=== PATIENT | female | born 1990 | race African-American/Black ===

== ENCOUNTER 2021-09-03 06:01 | Day surgery (SDC) | payer OTHER, MEDICAID ==
[2021-09-03 06:20] VITALS: BMI 31.5
[2021-09-03 07:01] LABS: Fetal Membranes Rupture No Membranes Rupture (No Rupture)
== END 2021-09-03 07:46 | disposition home health service (06) ==
LOC: CSHLD/OP 06:01
PROVIDERS: ATTEND Family Medicine
DX: O47.03 False labor before 37 completed weeks of gestation, third trimester (principal); O99.891 Other specified diseases and conditions complicating pregnancy; N89.8 Other specified noninflammatory disorders of vagina; Z3A.35 35 weeks gestation of pregnancy
CPT/HCPCS: 84112

== ENCOUNTER 2021-09-06 23:52 | Inpatient (IN) | payer OTHER ==
[2021-09-07] MEDS ORDERED: HYDROcodone/Acetaminophen 5/325 mg Tablet PO PRN ×2 (00:42→17:11)
[2021-09-07] MEDS ORDERED: Misoprostol 200 MCG TAB PR PRN (00:42)
[2021-09-07] MEDS ORDERED: Ibuprofen 800 MG TAB PO PRN (00:42)
[2021-09-07] MEDS ORDERED: hydrALAZINE 20 MG/ML VIAL SLOW IVP PRN ×2 (00:42→17:11)
[2021-09-07] MEDS ORDERED: Carboprost 250 MCG/ML AMP IM PRN (00:42)
[2021-09-07] MEDS ORDERED: Butorphanol Tartrate 1 MG/ML VIAL SLOW IVP PRN (00:42)
[2021-09-07] MEDS ORDERED: Promethazine HCl 25 MG/ML VIAL IM PRN ×3 (00:42→17:11)
[2021-09-07] MEDS ORDERED: Acetaminophen 500 MG TAB PO PRN (00:42)
[2021-09-07] MEDS ORDERED: Ondansetron PF 4 MG/2 ML Vial IVP PRN ×3 (00:42→17:11)
[2021-09-07] MEDS ORDERED: Lidocaine 1% (PF) 30 ML VIAL SC PRN (00:42)
[2021-09-07] MEDS ORDERED: Diphenoxylate HCl/Atropine Tablet PO PRN (00:42)
[2021-09-07] MEDS ORDERED: Methylergonovine 0.2 MG/ML VIAL IM PRN (00:42)
[2021-09-07] MEDS ORDERED: NS w/ Oxytocin 30 units 500 ML IV SCH ×3 (00:45→17:11)
[2021-09-07] MEDS ORDERED: Penicillin G Potassium 5 MILL.UNITS VIAL ONE (00:46)
[2021-09-07 00:56] VITALS: BMI 32.1
[2021-09-07] MEDS ORDERED: Penicillin G Potassium 5 MILL.UNITS in Sodium Chloride 0.9% 100 ML IVPB SCH (01:00)
[2021-09-07] MEDS ORDERED: Fentanyl 2 mcg/Bup 0.1% Cadd 100 ML ONE ×2 (01:10→09:11)
[2021-09-07 01:11] LABS: Hemoglobin 11.3 g/dL (12.0-15.5); Mean Corpuscular HGB CONC 33.5 g/dL (32.0-36.0); Mean Corpuscular Hemoglobin 28.3 pg (27.0-33.0); Mean Corpuscular Volume 84.3 fl (81.6-98.3); Mean Platelet Volume 11.7 fl (7.4-10.4); Platelet Count 183 10x3/uL (150-450); RBC Distribution Width 13.9 % (11.5-14.5); White Blood Cell (WBC) Count 12.2 10x3/uL (3.5-10.5)
[2021-09-07] MEDS: Lactated Ringer's 1,000 ML IV SCH (01:16)
[2021-09-07 01:45] LABS: Syphilis Antibody Nonreactive (Nonreactive); Syphilis Antibody Index 0.06 S/CO (<1.00 Non-Reactive)
[2021-09-07 01:46] LABS: Hep B Surf Ag Non-Reactive S/CO (NonReactive)
[2021-09-07] MEDS ORDERED: ePHEDrine Sulfate 50 MG/10 ML VIAL SLOW IVP PRN (01:50)
[2021-09-07] MEDS ORDERED: Acetaminophen 325 MG TAB PO PRN (01:50)
[2021-09-07] MEDS ORDERED: Lactated Ringer's 500 ML IV PRN (01:50)
[2021-09-07] MEDS ORDERED: diphenhydrAMINE 50 MG/ML VIAL IVP PRN (01:50)
[2021-09-07] MEDS ORDERED: Hydrocerin (Eucerin) Cream 120 gm Jar TOP PRN (01:50)
[2021-09-07] MEDS ORDERED: Naloxone HCl 0.4 mg/ml Vial IVP PRN ×2 (01:50)
[2021-09-07] MEDS ORDERED: Fentanyl 2 mcg/Bupivacaine 0.1% Cassette 100 ML EPIDURAL SCH (02:00)
[2021-09-07] MEDS ORDERED: Communication Order-Pharmacy FS SCH (02:00)
[2021-09-07 02:29] LABS: HBSAg Index 0.16 S/CO (0-0.99)
[2021-09-07] MEDS: Penicillin G 2.5 MILL.units 2.5 MILL.UNITS in Premix Bag 1 BAG IVPB SCH ×3 (04:11→13:01)
[2021-09-07] MEDS ORDERED: ePHEDrine Sulfate 50 MG/10 ML VIAL ONE (08:00)
[2021-09-07] MEDS ORDERED: Boostrix 0.5 ML (Tdap) VIAL IM ONE (17:11)
[2021-09-07] MEDS ORDERED: Bisacodyl 10 MG SUPP PR PRN (17:11)
[2021-09-07] MEDS ORDERED: diphenhydrAMINE 25 MG CAP PO PRN (17:11)
[2021-09-07] MEDS ORDERED: Milk Of Magnesia 30 ML UDCUP PO PRN (17:11)
[2021-09-07] MEDS: Ferrous Sulfate 325 MG TAB PO SCH (18:04)
[2021-09-07 20:51] LABS: SARS-CoV-2 PCR by NAA Not Detected (NotDetected)
[2021-09-07] MEDS: Ibuprofen 800 MG TAB PO SCH (21:00)
[2021-09-07] MEDS: Docusate 100 MG CAP PO SCH (21:00)
[2021-09-08] MEDS: Ibuprofen 800 MG TAB PO SCH ×2 (06:06→14:34)
[2021-09-08] MEDS: Ferrous Sulfate 325 MG TAB PO SCH ×2 (08:29→16:44)
[2021-09-08] MEDS: Lactated Ringer's 1,000 ML IV SCH ×2 (08:29→08:30)
[2021-09-08] MEDS: Penicillin G 2.5 MILL.units 2.5 MILL.UNITS in Premix Bag 1 BAG IVPB SCH (08:30)
[2021-09-08] MEDS ORDERED: Prenatal Vitamin 1 TAB PO SCH (09:00)
[2021-09-08] MEDS: Docusate 100 MG CAP PO SCH (09:06)
[2021-09-08 12:02] VITALS: BP 91/51; TEMP 98.8
== END 2021-09-08 18:30 | disposition home or self-care (01) | DRG 807 ==
LOC: CSHLD/OP 23:52 → CSHLD 09-07 00:43 → CSHPP 09-07 16:50
PROVIDERS: ADMIT Family Medicine; ATTEND Family Medicine
PROC: 10E0XZZ Delivery of Products of Conception, External Approach (ICD-10-PCS; principal; 2021-09-07)
PROC: 10907ZC Drainage of Amniotic Fluid, Therapeutic from Products of Conception, Via Natural or Artificial Opening (ICD-10-PCS; 2021-09-07)
DX: O60.14X0 Preterm labor third trimester with preterm delivery third trimester, not applicable or unspecified (principal); Z37.0 Single live birth; Z3A.37 37 weeks gestation of pregnancy; Z20.822 Contact with and (suspected) exposure to COVID-19; Z3A.36 36 weeks gestation of pregnancy; O69.81X0 Labor and delivery complicated by cord around neck, without compression, not applicable or unspecified
CPT/HCPCS: 85027; 86780; 86850; 86900; 86901; 87340; 88307; J2405; J2540; J2590; J7120; U0003; U0005